=== PATIENT | female | born 1955 | race African-American/Black ===

== ENCOUNTER 2016-05-28 13:02 | Emergency (ER) | payer OTHER ==
[~2016-05-28] VITALS: Ht 170.2 cm; Wt 73.0 kg
[2016-05-28] MEDS ORDERED: AMLO5TAB PO (13:18)
[2016-05-28 13:19] VITALS: BP 133/75
--- NOTE | 2016-05-28 13:52 | NUR ---
Patient ambulated to bed 3. RN evaluating patient at bedside.
--- NOTE | 2016-05-28 13:54 | NUR ---
60F BIB SELF C/O LEFT EAR PAIN X 1 WEEK; PT C/O ACHING LEFT EAR PAIN, RADIATES DOWN LEFT NECK, 8/10 X 1 WEEK; MILD SWELLING NOTED TO LEFT EAR, NO DRAINAGE OR BLEEDING NOTED AT THIS TIME; PT A&OX4, BL LUNG SOUNDS CLEAR, RR EVEN/UNLABORED, SKIN IS WARM/DRY/INTACT AT THIS TIME; PT DENIES N/V/D AT THIS TIME; STEADY GAIT; PT RESTING IN BED W/ HOB ELEVATED AND IN LOWEST POSITION; POSITIONED FOR COMFORT; ER MD MADE AWARE OF STATUS. WILL CONTINUE TO MONITOR.
--- NOTE | 2016-05-28 14:20 | NUR ---
Dr. Graham evaluating patient at bedside.
[2016-05-28 15:10] VITALS: BP 132/72
--- NOTE | 2016-05-28 15:11 | NUR ---
Patient discharged with v/s stable. Written and verbal after care instructions given and explained. Patient alert, oriented and verbalized understanding of instructions. Ambulatory with steady gait. All questions addressed prior to discharge. ID band removed. Patient advised to follow up with PMD. Rx of EAR DROPS, NORCO, MOTRIN AND AMOXICILLIN given. Patient educated on indication of medication including possible reaction and side effects. Opportunity to ask questions provided and answered.
== END 2016-05-28 14:43 | disposition home or self-care (01) ==
LOC: MED 13:02
DX: H60.92 Unspecified otitis externa, left ear (principal); H66.92 Otitis media, unspecified, left ear; I10 Essential (primary) hypertension; R07.0 Pain in throat; F17.200 Nicotine dependence, unspecified, uncomplicated; Z71.6 Tobacco abuse counseling
CPT/HCPCS: 99283

== ENCOUNTER 2016-09-07 09:44 | Emergency (ER) | payer OTHER ==
[~2016-09-07] VITALS: Ht 175.3 cm; Wt 76.4 kg
[~2016-09-07 09:44] MED LIST: AMLO5TAB PO
[2016-09-07 09:58] VITALS: BP 137/84
--- NOTE | 2016-09-07 10:12 | NUR ---
PATIENT PRESENTS TO ED WITH C/O BACK SPASM X 4 DAYS;DENIES INCONTINENCE, DENIES RECENT INJURY, AMBULATORY WITH STEADY GAIT;DENIES NUMBNESS/TINGLING SENSATION OF LOWER EXTREMITIES;HX OF OSTEOPOROSIS AND HTN;DENIES N/V/D; SKIN IS PINK/WARM/DRY; AAOX4 WITH EVEN AND STEADY GAIT; LUNGS CLEAR BL; HR EVEN AND REGULAR; PT DENIES ANY FEVER, CP, SOB, OR COUGH AT THIS TIME; PATIENT STATES PAIN OF 10/10 BACK PAIN;NO FACIAL GRIMMACING/MOANING/FREQUENT CHANGE OF POSITION NOTED AT THIS TIME; VSS; PATIENT POSITIONED FOR COMFORT; HOB ELEVATED; BEDRAILS UP X2; BED DOWN.ALL MONITORS IN PLACED.
--- NOTE | 2016-09-07 10:56 | NUR ---
PT KEEP ON ASKING WHAT THE DR WILL COME AND SEE HER;EXPLAINED TO PT THAT DR IS BUSY DUE TO HIGH VOLUME OF PT;AND DR IS TRYING HIS BEST TO ATTEND TO HER;
--- NOTE | 2016-09-07 11:25 | NUR ---
PT C/O PAIN;10/10 PAIN SCALE;NO MOANING/FACIAL GRIMMACING NOTED;POSITIONE PT TO COMFORTABLE POSITION;NOTIFID ERMD;DR LAKE SAID HE'S ABOUT TO SEE THE PT.
--- NOTE | 2016-09-07 11:26 | NUR ---
DR LAKE AT BEDSIDE.
[2016-09-07 11:50] LABS: BASOPHILS # (AUTO) 0.2 K/uL (0.00-0.22); BASOPHILS % (AUTO) 3.6 % (0.0-2.0); EOSINOPHILS # (AUTO) 0.2 K/uL (0-0.4); EOSINOPHILS % (AUTO) 3.6 % (0.0-4.0); HEMOGLOBIN 13.5 g/dL (12.0-16.0); LYMPHOCYTES % (AUTO) 33.2 % (20.5-51.1); MEAN CORPUSCULAR HEMOGLOBIN 33 pg (27-31); MEAN CORPUSCULAR HGB CONC 34 g/dL (33-37); MEAN CORPUSCULAR VOLUME 98 fL (80-94); MONOCYTES # (AUTO) 0.6 K/uL (0.8-1.0); MONOCYTES % (AUTO) 9.3 % (1.7-9.3); NEUTROPHILS # (AUTO) 3.2 K/uL (1.8-7.7); NEUTROPHILS % (AUTO) 50.3 % (42.2-75.2); PLATELET COUNT (AUTO) 194 K/uL (140-450); RED CELL DISTRIBUTION WIDTH 12.4 % (11.6-13.7); WHITE BLOOD COUNT (AUTO) 6.2 K/uL (4.8-10.8)
[2016-09-07 11:53] LABS: APPEARANCE,URINE CLEAR (CLEAR); BILIRUBIN,URINE NEGATIVE (NEGATIVE); BLOOD, URINE NEGATIVE (NEGATIVE); COLOR,URINE YELLOW (YELLOW); LEUKOCYTE ESTERASE ,URINE NEGATIVE (NEGATIVE); NITRITE, URINE NEGATIVE (NEGATIVE); PH,URINE 6.5 (5.0-9.0); PROTEIN,URINE NEGATIVE (NEGATIVE); UGLUCOSE NEGATIVE (NEGATIVE); UROBILINOGEN,URINE 0.2 EU/dL (0.2 - 1)
[2016-09-07] MEDS ORDERED: HYDROcodone/APAP 10/325 MG 1 TAB TAB PO STA (11:57)
[2016-09-07] MEDS ORDERED: DIAZEPAM 5 MG TAB PO ONE (12:00)
[2016-09-07 12:03] LABS: ANION GAP 13.3 (8-16); CALCIUM 8.3 mg/dL (8.5-10.1); CARBON DIOXIDE 25.5 mmol/L (21-32); CREATININE 0.8 mg/dL (0.6-1.3); POTASSIUM 3.8 mmol/L (3.5-5.1)
[2016-09-07 12:05] LABS: BACTERIA,URINE None Seen /HPF (None Seen); RBC,URINE 0-5 (RARE) /HPF (0-5); SQUAMOUS EPITHELIAL CELL,UR 0-3 (FEW) /LPF (0-3 (FEW)); WBC,URINE NONE SEEN /HPF (0-5)
[2016-09-07 12:06] LABS: CALCIUM OXALATE CRYSTALS,UR 0-10 /HPF (None Seen)
[2016-09-07 12:08] LABS: ALBUMIN 3.6 g/dL (3.4-5.0); TOTAL BILIRUBIN 0.2 mg/dL (0.0-1.0); TOTAL PROTEIN, SERUM 7.1 g/dL (6.4-8.2)
--- NOTE | 2016-09-07 12:41 | NUR ---
PT RESTING ON BED;ASKED FOR CRACKERS;OFFERED CRACKERS AND JUICE;PT IS THANKFUL.
--- NOTE | 2016-09-07 14:01 | NUR ---
AYDIN PEREZ AT BEDSIDE.
--- NOTE | 2016-09-07 14:35 | NUR ---
Patient discharged with v/s stable. Written and verbal after care instructions given and explained. Patient alert, oriented and verbalized understanding of instructions. Ambulatory with steady gait. All questions addressed prior to discharge. ID band removed. Patient advised to follow up with PMD. Rx of MOBIC,NORCO AND VALIUM given. Patient educated on indication of medication including possible reaction and side effects. Opportunity to ask questions provided and answered.
[2016-09-07 14:36] VITALS: BP 148/92
== END 2016-09-07 14:35 | disposition home or self-care (01) ==
LOC: MED 09:44
DX: S29.012A Strain of muscle and tendon of back wall of thorax, initial encounter (principal); S39.012A Strain of muscle, fascia and tendon of lower back, initial encounter; I10 Essential (primary) hypertension; M81.0 Age-related osteoporosis without current pathological fracture; F17.200 Nicotine dependence, unspecified, uncomplicated; Z71.6 Tobacco abuse counseling; W01.0XXA Fall on same level from slipping, tripping and stumbling without subsequent striking against object, initial encounter; Y93.89 Activity, other specified; Y92.89 Other specified places as the place of occurrence of the external cause; Y99.8 Other external cause status
CPT/HCPCS: 36415; 71010; 80053; 81001; 84484; 85025; 93005; 99285; Q0092

== ENCOUNTER 2016-10-16 09:37 | Emergency (ER) | payer OTHER ==
[~2016-10-16] VITALS: Ht 170.2 cm; Wt 75.3 kg
[2016-10-16 09:46] VITALS: BP 130/72
--- NOTE | 2016-10-16 09:52 | NUR ---
PATIENT PRESENTS TO ED WITH C/O EVA EYE PAIN SINCE SUNDAY; HAD PUT EYE LASHES HX; HTN, OSTEPOROSIS RX; NORVASC 5MG QD DENIES N/V/D; SKIN IS PINK/WARM/DRY; AAOX4 WITH EVEN AND STEADY GAIT; LUNGS CLEAR BL; HR EVEN AND REGULAR; PT DENIES ANY FEVER, CP, SOB, OR COUGH AT THIS TIME; PATIENT STATES PAIN OF 8/10 AT THIS TIME; VSS; PATIENT POSITIONED FOR COMFORT; HOB ELEVATED; BEDRAILS UP X2; BED DOWN. ER MD MADE AWARE OF PT STATUS.
[2016-10-16] MEDS ORDERED: FLUORESCEIN OPTH STRIP 1 MG OP ONE (10:05)
--- NOTE | 2016-10-16 10:07 | NUR ---
DR MO EVALUATING AAO PT AT BEDSIDE
[2016-10-16 10:21] VITALS: BP 111/63
--- NOTE | 2016-10-16 10:22 | NUR ---
Patient discharged with v/s stable. Written and verbal after care instructions given and explained. Patient alert, oriented and verbalized understanding of instructions. Ambulatory with steady gait. All questions addressed prior to discharge. ID band removed. Patient advised to follow up with PMD. Rx of ERYTHROMYCIN OPHT OINT given. Patient educated on indication of medication including possible reaction and side effects. Opportunity to ask questions provided and answered.
== END 2016-10-16 10:22 | disposition home or self-care (01) ==
LOC: MED 09:37
DX: H10.9 Unspecified conjunctivitis (principal); M81.0 Age-related osteoporosis without current pathological fracture; Z79.899 Other long term (current) drug therapy
CPT/HCPCS: 99283

== ENCOUNTER 2016-11-07 16:02 | Emergency (ER) | payer OTHER ==
[~2016-11-07] VITALS: Ht 170.2 cm; Wt 76.2 kg
[2016-11-07 16:44] VITALS: BP 121/77
--- NOTE | 2016-11-07 17:48 | NUR ---
PT TO BED 6 AT THIS TIME.
--- NOTE | 2016-11-07 17:48 | NUR ---
DR BULLARD EVALUATING AAO PT AT BEDSIDE
--- NOTE | 2016-11-07 17:49 | NUR ---
PT PRESENTS TO ER W/C/O FLU S/SX; GENERALIZED BODY ACHES, HEAD PRESSURE, COUGH X1 WEEK. DENIES N/V/D; SKIN IS PINK/WARM/DRY; AAOX4 WITH EVEN AND STEADY GAIT; LUNGS CLEAR BL; HR EVEN AND REGULAR; PT DENIES ANY FEVER, CP, SOB, OR COUGH AT THIS TIME; PATIENT STATES PAIN OF 10/10 AT THIS TIME; VSS; PATIENT POSITIONED FOR COMFORT; HOB ELEVATED; BEDRAILS UP X2; BED DOWN. ER MD MADE AWARE OF PT STATUS.
[2016-11-07] MEDS ORDERED: IBUPROFEN 800 MG TAB PO ONE (17:55)
[2016-11-07 18:17] VITALS: BP 138/80
--- NOTE | 2016-11-07 18:17 | NUR ---
Patient discharged with v/s stable. Written and verbal after care instructions given and explained. Patient alert, oriented and verbalized understanding of instructions. Ambulatory with steady gait. All questions addressed prior to discharge. ID band removed. Patient advised to follow up with PMD. Rx of AZITHROMYCIN, MOTRIN, ROBITUSSIN given. Patient educated on indication of medication including possible reaction and side effects. Opportunity to ask questions provided and answered.
== END 2016-11-07 18:17 | disposition home or self-care (01) ==
LOC: MED 16:02
DX: J32.9 Chronic sinusitis, unspecified (principal); I10 Essential (primary) hypertension; F17.200 Nicotine dependence, unspecified, uncomplicated; Z71.6 Tobacco abuse counseling
CPT/HCPCS: 71010; 99283

== ENCOUNTER 2019-01-08 10:35 | Emergency (ER) | payer OTHER ==
[~2019-01-08] VITALS: Ht 170.2 cm; Wt 83.9 kg
--- NOTE | 2019-01-08 10:47 | NUR ---
Patient ambulated to bed 6. RN evaluating patient at bedside.
--- NOTE | 2019-01-08 10:50 | NUR ---
PATIENT PRESENTS TO ED WITH BILATERAL KNEE PAIN X 1 MONTH. PT HAD HISTORY OF FALL 1 MONTH AGO. PT ALSO COMPLAINS OF STIFFNESS OF FINGER JOINTS WHICH IS WORSE IN THE AM. -NUMBNESS -TINGLING SENSATION. AAOX4 WITH EVEN AND STEADY GAIT; LUNGS CLEAR BL; HR EVEN AND REGULAR; PT DENIES ANY FEVER, CP, SOB, OR COUGH AT THIS TIME; PATIENT STATES PAIN OF 10/10 AT THIS TIME, DESCRIBED PRESSURE-LIKE AND CONSTANT; VSS; PATIENT POSITIONED FOR COMFORT; HOB ELEVATED; BEDRAILS UP X2; BED DOWN. ER MD MADE AWARE OF PT STATUS. PMH: HTN MEDS: AMLODIPINE ALLERGIES: NONE
--- NOTE | 2019-01-08 11:19 | NUR ---
Dr. Lechuga is evaluating the patient at bedside.
--- NOTE | 2019-01-08 11:44 | NUR ---
Patient taken to [facility] via wheelchair by tech.
--- NOTE | 2019-01-08 11:53 | NUR ---
PT BACK FROM XRAY
[2019-01-08 12:40] VITALS: BP 130/83
== END 2019-01-08 12:40 | disposition home or self-care (01) ==
LOC: MED 10:35
DX: M25.562 Pain in left knee (principal); I10 Essential (primary) hypertension; Z79.899 Other long term (current) drug therapy
CPT/HCPCS: 73562; 99283